=== PATIENT | female | born 1980 | race Caucasian/White ===

== ENCOUNTER → 2018-02-22 | Outpatient (CLI) | payer BC ==
--- NOTE | 2018-02-25 10:29 | RAD ---
Indication: Routine mammogram Technique: 2-D and 3-D bilateral mammogram. CAD was utilized. Comparison: None Findings: Breast density category D. The breasts are extremely dense, which lowers the sensitivity of mammography. The skin and nipples are within normal limits. No suspicious calcifications, spiculated mass or area of architectural distortion. Impression: No mammographic evidence of malignancy. BI-RADS 2: Benign findings. Continued screening.
== END | disposition home or self-care (01) ==
LOC: MAMMO 13:24
PROVIDERS: ATTEND Obstetrics & Gynecology
DX: Z12.31 Encounter for screening mammogram for malignant neoplasm of breast (principal)
CPT/HCPCS: 77063; 77067

== ENCOUNTER → 2021-10-14 | Outpatient (CLI) | payer BC ==
--- NOTE | 2021-10-14 16:02 | RAD ---
EXAM: Bilateral digital diagnostic mammogram with tomosynthesis. HISTORY: 41-year-old female with a palpable left breast lump. TECHNIQUE: Full-field digital craniocaudal and mediolateral oblique 2D and 3D tomosynthesis images of both breasts are obtained for evaluation. Computer aided detection was applied. Sonographic imaging of the left breast targeted to the site of palpable concern and mammographic nodularity was also perf ormed. COMPARISON: 02/22/2018 BREAST PARENCHYMAL DENSITY: Level D - Extremely dense. FINDINGS: There is a nodular density within the 11:00 subareolar aspect of the left breast at the pal pable concern. There is additional nodularity within the there is a chronic nonunited position approx imately 6 cm from the nipple. There is no suspicious calcification or architectural distortion. Sonographic imaging of the left breast demonstrates a 1.1 cm simple cyst at the 11:00 position 2 cm f rom the nipple, corresponding with the location of palpable concern. There are few surrounding smalle r cysts and dilated ducts. There is also a 9 mm cyst with smaller adjacent cysts at the 9:00 position 5 cm from the nipple and an 8 mm cyst with surrounding cysts at the 8:00 position 6 cm from the nipp le. There are fibrocystic changes. There is no suspicious or sonographic finding. IMPRESSION: 1. 1.1 cm simple cyst at the 11:00 subareolar location of the left breast, corresponding with the pal pable abnormality of concern. 2. Multiple additional benign-appearing cysts and fibrocystic changes throughout the left breast demo nstrated sonographically, described above. 3. No new suspicious mammographic or sonographic finding. 4. BI-RADS Category 2: Benign finding(s). RECOMMENDATION: Annual mammography is recommended. Continued clinical follow-up of palpable abnormali ties is also recommended. Negative imaging should not preclude the decision to biopsy a palpable abno rmality if there is continued concern. If your mammogram demonstrates that you have dense breast tissue, which could hide abnormalities, and if you have other risk factors for breast cancer that have been identified, you might benefit from s upplemental screening tests that may be suggested by your ordering physician. Dense breast tissue, i n and of itself, is a relatively common condition. This information is not provided to cause undue c oncern, but rather to raise your awareness and to promote discussion with your physician regarding th e presence of other risk factors, in addition to dense breast tissue. A report of your mammography re sults will be sent to you and your physician. You should contact your physician if you have any ques tions or concerns regarding this report. Mammography is a sensitive method for finding small breast cancers, but it does not detect them all a nd is not a substitute for careful clinical examination. A negative mammogram does not negate a clin ically suspicious finding and should not result in delay in biopsying a clinically suspicious abnorma lity. PQRS compliance statement - Patient information was entered into a reminder system with a target due date for the next mammogram. "Our facility is accredited by the [employer] Mammography [employer]." Electronically signed by: Oriana Dc MD (10/14/2021 4:00 PM) [id number]
== END ==
LOC: MAMMO 14:56
PROVIDERS: ATTEND Obstetrics & Gynecology
DX: N60.02 Solitary cyst of left breast (principal)
CPT/HCPCS: 76642; 77066